=== PATIENT | male | born 1970 | race Hispanic/Latino ===

== ENCOUNTER 2019-08-14 08:13 | Emergency (ER) | payer SELFPAY ==
--- NOTE | 2019-08-14 08:53 | ER ---
Nurse's Notes [facility] Name: Terry Valenzuela Age: 48 yrs Sex: Male : 1970 Arrival Date: 08/14/2019 Time: 08:17 Bed 13 Private MD: Diagnosis: Cutaneous abscess of right lower limb Presentation: 08/13 08:20 Chief complaint: Patient states: abscess to R lateral lower leg that began 3-4 days ss ago. Coronavirus screen: Patient denies fever greater than 100.4F, cough, shortness of breath, or difficulty breathing. Proceed with normal triage process. Ebola Screen: Patient denies exposure to infectious person. Patient denies travel to an Ebola-affected area in the 21 days before illness onset. Initial Sepsis Screen: Does the patient meet any 2 criteria? No. Patient's initial sepsis screen is negative. Does the patient have a suspected source of infection? Yes: Skin breakdown/wound. Risk Assessment: Do you want to hurt yourself or someone else? Patient reports no desire to harm self or others. 08:20 Method Of Arrival: Ambulatory ss 08:20 Acuity: DIANE 4 ss Historical: - Allergies: 08:35 No Known Allergies; ss - Home Meds: 08:35 None [Active]; ss - PMHx: 08:35 None; ss - PSHx: 08:35 None; ss - Immunization history:: Adult Immunizations up to date. - Social history:: Smoking status: Patient denies any tobacco usage or history of. - Family history:: not pertinent. - Hospitalizations: : No recent hospitalization is reported. Screenin:45 Abuse screen: Denies threats or abuse. Denies injuries from another. Nutritional ph screening: No deficits noted. Tuberculosis screening: No symptoms or risk factors identified. Fall Risk None identified. Assessment: 08:45 General: Appears in no apparent distress. comfortable, well groomed, Behavior is calm, ph cooperative, appropriate for age, Denies fever, feeling ill. Pain: Complains of pain in lateral aspect of right calf. Neuro: Level of Consciousness is awake, alert, obeys commands, Oriented to person, place, time, situation. Cardiovascular: Capillary refill < 3 seconds in bilateral fingers Patient's skin is warm and dry. Respiratory: Airway is patent Respiratory effort is even, unlabored, Respiratory pattern is regular, symmetrical. Derm: Skin is healthy with good turgor, Skin is pink, warm \T\ dry. Abscess located on lateral aspect of right calf is nickel sized, has purulent drainage, is hot to touch, is red, is raised. Musculoskeletal: Circulation, motion, and sensation intact. Range of motion: intact in all extremities. Vital Signs: 08:20 BP 141 / 89; Pulse 96; Resp 16; Temp 99.1(O); Pulse Ox 95% on R/A; Weight 81.65 kg; ss Height 5 ft. 5 in. (165.10 cm); Pain 8/10; 09:15 BP 135 / 80; Pulse 87; Resp 18; Temp 98.0; Pulse Ox 99% on R/A; ph 08:20 Body Mass Index 29.95 (81.65 kg, 165.10 cm) ED Course: 08:17 Patient arrived in ED. am2 08:21 Raheel Liu MD is Attending Physician. rn 08:35 Triage completed. ss 08:35 Arm band placed on right wrist. ss 08:39 Narcisa Jamison RN is Primary Nurse. ph 08:45 Patient has correct armband on for positive identification. Bed in low position. Call ph light in reach. Side rails up X 1. Pulse ox on. NIBP on. 08:45 Assist provider with I \T\ D: of an abscess on right lateral calve Set up I\T\D tray. ph Performed by Raheel Liu MD Wound packed. iodoform gauze, Dressing with ABD pad, 4X4s, tape Patient tolerated well. Patient did not have IV access during this emergency room visit. 09:15 Dressings: 4X4s X 1; lateral aspect of right calf. Dressings:. ph Administered Medications: 08:44 Drug: Lidocaine (1 %) 1 vials Volume: 5 ml; Route: Infiltration; ph 09:30 Follow up: Response: No adverse reaction ph Outcome: 08:53 Discharge ordered by . rn 09:33 Patient left the ED. ph 09:33 Discharged to home ambulatory. ph 09:33 Condition: good 09:33 Discharge instructions given to patient, Instructed on discharge instructions, follow up and referral plans. medication usage, wound care, Demonstrated understanding of instructions, follow-up care, medications, wound care, Prescriptions given X 1. Signatures: Raheel Liu MD MD rn Smirch, Shelby, RN RN ss Narcisa Jamison RN RN Kayla Cronin Corrections: (The following items were deleted from the chart) 08:35 08:20 Acuity: DIANE 3 ss ss
--- NOTE | 2019-08-14 08:54 | EDPHYS ---
Physician Documentation [facility] Name: Terry Valenzuela Age: 48 yrs Sex: Male : 1970 Arrival Date: 08/14/2019 Time: 08:17 Bed 13 Private MD: ED Physician Raheel Liu HPI: 08/13 08:28 This 48 yrs old Male presents to ER via Unassigned with complaints of Leg Pain rn - swelling, Insect Bite. 08:28 The patient presents with an abscess, moderate-sized. The complaints affect the lateral rn aspect of right calf. Onset: The symptoms/episode began/occurred 4 day(s) ago. Modifying factors: The symptoms are alleviated by nothing. the symptoms are aggravated by nothing. Severity of symptoms: At their worst the symptoms were mild, in the emergency department the symptoms are unchanged. The patient has not experienced similar symptoms in the past. Reports swelling to right lateral lower leg, no known cause, has been expressing fluid from open wound, reports still red and warm. . Historical: - Allergies: 08:35 No Known Allergies; ss - Home Meds: 08:35 None [Active]; ss - PMHx: 08:35 None; ss - PSHx: 08:35 None; ss - Immunization history:: Adult Immunizations up to date. - Social history:: Smoking status: Patient denies any tobacco usage or history of. - Family history:: not pertinent. - Hospitalizations: : No recent hospitalization is reported. ROS: 08:28 Constitutional: Negative for fever, chills, and weight loss, Cardiovascular: Negative rn for chest pain, palpitations, and edema, Respiratory: Negative for shortness of breath, cough, wheezing, and pleuritic chest pain, Abdomen/GI: Negative for abdominal pain, nausea, vomiting, diarrhea, and constipation, MS/Extremity: + right lower leg swelling and warmth Skin: + right leg with induration and central open wound with clear fluid expressed, + minimal fluctuance Exam: 08:28 Constitutional: This is a well developed, well nourished patient who is awake, alert, rn and in no acute distress. MS/ Extremity: Pulses equal, no cyanosis. Neurovascular intact. Full, normal range of motion. Equal circumference. + right lateral lower leg with 4-5cm induration and minimal fluctuance with central open wound and clear drainage. Vital Signs: 08:20 BP 141 / 89; Pulse 96; Resp 16; Temp 99.1(O); Pulse Ox 95% on R/A; Weight 81.65 kg; ss Height 5 ft. 5 in. (165.10 cm); Pain 8/10; 09:15 BP 135 / 80; Pulse 87; Resp 18; Temp 98.0; Pulse Ox 99% on R/A; ph 08:20 Body Mass Index 29.95 (81.65 kg, 165.10 cm) ss Procedures: 08:51 I \T\ D: Incision and drainage was performed for an abscess of the right right leg rn Prepped with Betadine, Anesthetized with 3 ml's 1% Lidocaine. Incised with #11 blade. Drained small amount purulent fluid. serosanguinous fluid. Packed with iodoform gauze, Dressing: sterile 4x4 gauze, the patient tolerated the procedure well. MDM: 08:21 Patient medically screened. rn 08:51 Differential diagnosis: abscess, cellulitis. Data reviewed: vital signs, nurses notes, rn and as a result, I will discharge patient. Counseling: I had a detailed discussion with the patient and/or guardian regarding: the historical points, exam findings, and any diagnostic results supporting the discharge/admit diagnosis, the need for outpatient follow up, to return to the emergency department if symptoms worsen or persist or if there are any questions or concerns that arise at home. Special discussion: I discussed with the patient/guardian in detail that at this point there is no indication for admission to the hospital. It is understood, however, that if the symptoms persist or worsen the patient needs to return immediately for re-evaluation. 08:51 ED course: Tolerated incision and drainage well, will place on abx, minimal purulence rn obtained but did have some. Instructed regarding packing change and return precautions.. 08/13 08:28 Order name: Incision \T\ Drainage Setup; Complete Time: 08:45 rn 08/13 08:50 Order name: Wound Care; Complete Time: 09:08 rn 08/13 08:50 Order name: Wound dressing; Complete Time: 09:08 rn Administered Medications: 08:44 Drug: Lidocaine (1 %) 1 vials Volume: 5 ml; Route: Infiltration; ph 09:30 Follow up: Response: No adverse reaction ph Disposition: 08/14/19 08:53 Discharged to Home. Impression: Cutaneous abscess of right lower limb. - Condition is Stable. - Discharge Instructions: Skin Abscess, Incision and Drainage, Wound Packing. - Prescriptions for Clindamycin HCl 300 mg Oral Capsule - take 1 capsule by ORAL route every 6 hours for 10 days; 40 capsule. - Medication Reconciliation Form, Thank You Letter, Antibiotic Education, Prescription Opioid Use form. - Follow up: Private Physician; When: As needed; Reason: Recheck today's complaints, Re-evaluation by your physician. - Problem is new. - Symptoms have improved. Signatures: Raheel Liu MD MD rn Smirch, Shelby, RN RN Narcisa Jamison RN RN Corrections: (The following items were deleted from the chart) 09:33 08:53 08/14/2019 08:53 Discharged to Home. Impression: Cutaneous abscess of right lower ph limb. Condition is Stable. Forms are Medication Reconciliation Form, Thank You Letter, Antibiotic Education, Prescription Opioid Use. Follow up: Private Physician; When: As needed; Reason: Recheck today's complaints, Re-evaluation by your physician. Problem is new. Symptoms have improved. rn
[2019-08-14 09:38] VITALS: BP 141/89; TEMP 99.1; O2SAT 95
== END 2019-08-14 09:33 | disposition home or self-care (01) ==
LOC: ER 08:13
PROC: 0J9N0ZZ Drainage of Right Lower Leg Subcutaneous Tissue and Fascia, Open Approach (ICD-10-PCS; principal; 2019-08-14)
DX: L02.415 Cutaneous abscess of right lower limb (principal); W57.XXXA Bitten or stung by nonvenomous insect and other nonvenomous arthropods, initial encounter; Y93.9 Activity, unspecified; Y92.9 Unspecified place or not applicable
CPT/HCPCS: 99284